=== PATIENT | female | born 1970 | race African-American/Black ===

== ENCOUNTER → 2019-08-14 | Outpatient (CLI) | payer OTHER ==
[~2019-08-14] MED LIST: AMOXICILLIN 50500 MG PO; PREDNISONE 20 M20 MG PO; VALIUM5 MG PO
== END ==
LOC: RAD 10:56
DX: Z12.31 Encounter for screening mammogram for malignant neoplasm of breast (principal)

== ENCOUNTER → 2019-09-17 | Outpatient (CLI) | payer OTHER ==
[~2019-09-17] MED LIST changes: +NOHOMEMEDICATIONS
== END ==
LOC: ULTRA 09:15
DX: E04.1 Nontoxic single thyroid nodule (principal); D25.9 Leiomyoma of uterus, unspecified

== ENCOUNTER → 2019-10-11 | Outpatient (CLI) | payer OTHER ==
[2019-10-11 09:15] VITALS: BP 137/61
[2019-10-11 09:40] VITALS: BP 138/71
--- NOTE | 2019-10-11 09:58 | NUR ---
IN FOR 2ND INJECTAFER INFUSION. STATED HAD A HEADACHE FOR 2 DAYS AFTER LAST WEEK'S INFUSION WHICH RESOLVED ON IT'S OWN. ALSO STATED SHE HAS NOT HAD ANY MUSCLE CRAMPS IN THE LAST WEEK. TOLERATED TODAY'S INFUSION WITHOUT INCIDENT. POST VITAL SIGNS GOOD. OBSERVED FOR 30 MINUTES AND THEN DISMISSED IN GOOD CONDITION.
== END ==
LOC: OPONC 08:27
DX: D50.0 Iron deficiency anemia secondary to blood loss (chronic) (principal); N92.0 Excessive and frequent menstruation with regular cycle
CPT/HCPCS: 95000

== ENCOUNTER → 2020-04-04 | Outpatient (CLI) | payer OTHER | LOC: ULTRA 10:28 | PROVIDERS: ATTEND Obstetrics & Gynecology | DX: D25.9 Leiomyoma of uterus, unspecified (principal) ==

== ENCOUNTER 2020-12-13 08:37 | Emergency (ER) | payer OTHER ==
[~2020-12-13] VITALS: Ht 160 cm; Wt 93.9 kg
[2020-12-13] MEDS ORDERED: HYDROCODON-ACE1 EAC7 PO (08:56)
[2020-12-13] MEDS ORDERED: IBUPROFEN 600600 M1 PO (08:56)
[2020-12-13 10:26] VITALS: BP 152/74
== END 2020-12-13 10:27 | disposition home or self-care (01) ==
LOC: ER 08:37
DX: M72.2 Plantar fascial fibromatosis (principal); Z79.899 Other long term (current) drug therapy; Z79.1 Long term (current) use of non-steroidal anti-inflammatories (NSAID)

== ENCOUNTER → 2021-10-22 | Outpatient (CLI) | payer OTHER ==
[~2021-10-22] MED LIST changes: +HYDROCODON-ACE1 EAC7 PO; +IBUPROFEN 600600 M1 PO
== END ==
LOC: RAD 14:42
PROVIDERS: ATTEND Family Medicine
DX: G89.29 Other chronic pain (principal); M54.50 Low back pain, unspecified